=== PATIENT | female | born 1955 | race Hispanic/Latino ===

== ENCOUNTER → 2017-04-04 | Outpatient (CLI) | payer OTHER | END | disposition home or self-care (01) | LOC: OIH 09:11 | PROVIDERS: ATTEND Nurse Practitioner Adult Health | DX: Z13.6 Encounter for screening for cardiovascular disorders (principal) | CPT/HCPCS: 75571 ==

== ENCOUNTER → 2018-10-03 | Outpatient (CLI) | payer BC, OTHER | END | disposition home or self-care (01) | LOC: RAH 15:29 | PROVIDERS: ATTEND Physician Assistant Medical | DX: M50.21 Other cervical disc displacement, high cervical region (principal); M48.02 Spinal stenosis, cervical region | CPT/HCPCS: 72141 ==

== ENCOUNTER 2018-10-05 03:25 | Emergency (ER) | payer BC ==
[2018-10-05] MEDS ORDERED: KETOROLAC TROMETHAMINE 60 MG/2 ML VIAL ONE (04:54)
== END 2018-10-05 06:54 | disposition home or self-care (01) ==
LOC: EDH 03:25
DX: M54.6 Pain in thoracic spine (principal); M54.2 Cervicalgia; M62.838 Other muscle spasm
CPT/HCPCS: 96372; 99284; J1885

== ENCOUNTER → 2019-07-28 | Outpatient (CLI) | payer OTHER | END | disposition home or self-care (01) | LOC: RAH 09:44 | PROVIDERS: ATTEND Family Medicine | DX: Z13.6 Encounter for screening for cardiovascular disorders (principal) | CPT/HCPCS: 75571 ==

== ENCOUNTER 2021-02-03 22:19 | Emergency (ER) | payer MEDICARE, OTHER ==
[~2021-02-03] VITALS: Ht 149.9 cm; Wt 74.8 kg
[2021-02-03] MEDS ORDERED: HYDROCODONE/ACETAMINOPHEN 10/325 MG TAB PO ONE (23:00)
[2021-02-03] MEDS ORDERED: DIAZEPAM 5 MG TABLET PO ONE (23:00)
[2021-02-03] MEDS ORDERED: KETOROLAC 60 MG VIAL (30MG/ML) IM ONE (23:00)
[2021-02-03] MEDS ORDERED: 0.9%NACL 1000ML 1,000 ML IV ONE (23:30)
[2021-02-03] MEDS ORDERED: KETOROLAC 30MG VIAL (30MG/ML) IV ONE (23:30)
[2021-02-03 23:54] LABS: BASOPHILS % (AUTO) 0.3 % (0.0-5.0); EOSINOPHILS % (AUTO) 0.9 % (0.0-8.0); HEMATOCRIT 42.4 % (36-48); LYMPHOCYTES % (AUTO) 11.3 % (21.0-51.0); MEAN CORPUSCULAR HGB CONC 32.3 g/dL (32.0-36.0); NEUTROPHILS % (AUTO) 80.2 % (40.0-77.0); PLATELET COUNT (AUTO) 280 K/uL (130-400); RED BLOOD CELL COUNT(AUTO) 4.56 MIL/uL (4.00-5.50); RED CELL DISTRIBUTION WIDTH 12.5 % (11.0-15.5); WHITE BLOOD COUNT (AUTO) 10.7 K/uL (4.8-10.8)
[2021-02-04 00:11] LABS: CREATININE 0.8 mg/dL (0.5-1.5); POTASSIUM 4.3 mmol/L (3.5-5.1)
[2021-02-04 00:16] LABS: BILIRUBIN,TOTAL 0.2 mg/dL (0.2-1.0); CRP QUANTITATIVE 5.4 mg/L (0.00-9.0); TOTAL PROTEIN, SERUM 7.7 g/dL (6.0-8.3)
[2021-02-04 01:10] LABS: APPEARANCE,URINE Clear (CLEAR); BILIRUBIN,URINE Negative (NEGATIVE); COLOR,URINE Yellow (YELLOW); GLUCOSE, URINE (UA) Negative (NEGATIVE); KETONES,URINE Negative (NEGATIVE); LEUKOCYTE ESTERASE ,URINE Moderate (NEGATIVE); NITRATE,URINE Negative (NEGATIVE); OCCULT BLOOD,URINE Negative (NEGATIVE); PROTEIN,URINE Negative (NEGATIVE)
[2021-02-04 01:32] LABS: BACTERIA,URINE None Seen /HPF (None Seen); RBC,URINE 0-1 /HPF (0-1); SQUAMOUS EPITHELIAL CELL,UR Rare /HPF (0-2)
[2021-02-04 01:55] VITALS: BP 118/72
[2021-02-04] MEDS ORDERED: CEFTRIAXONE 1G VIAL IVP ONE (02:00)
[2021-02-04] MEDS ORDERED: ORPH-43 PO (02:14)
[2021-02-04] MEDS ORDERED: CEPH500B PO (02:14)
[2021-02-04] MEDS ORDERED: LIDOP TP (02:14)
[2021-02-04] MEDS ORDERED: MELO7.5T12 PO (02:14)
== END 2021-02-04 02:44 | disposition home or self-care (01) ==
LOC: EDH 22:19
DX: N39.0 Urinary tract infection, site not specified (principal); E86.9 Volume depletion, unspecified; M54.50 Low back pain, unspecified; Z20.822 Contact with and (suspected) exposure to COVID-19; E78.00 Pure hypercholesterolemia, unspecified; E66.9 Obesity, unspecified; Z79.1 Long term (current) use of non-steroidal anti-inflammatories (NSAID); Z90.49 Acquired absence of other specified parts of digestive tract; Z68.33 Body mass index [BMI] 33.0-33.9, adult
CPT/HCPCS: 36415; 71045; 72131; 80053; 81001; 83605; 85025; 86140; 87088; 87635; 87804 ×2; 96361; 96374; 96375; 99285; C9803; J0696; J1885; J7030

== ENCOUNTER 2024-12-07 14:02 | Emergency (ER) | payer MEDICARE ==
[~2024-12-07] VITALS: Ht 149.9 cm; Wt 74.8 kg
[~2024-12-07 14:02] MED LIST: CEPH500B PO; LIDOP TP; MELO7.5T12 PO; ORPH100T4 PO
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
[2024-12-07 15:22] LABS: APPEARANCE,URINE CLEAR (CLEAR); GLUCOSE, URINE (UA) NEGATIVE (NEGATIVE); LEUKOCYTE ESTERASE ,URINE NEGATIVE Leu/uL (NEGATIVE); NITRATE,URINE NEGATIVE (NEGATIVE); OCCULT BLOOD,URINE NEGATIVE (NEGATIVE)
[2024-12-07 15:27] LABS: NUCLEATED RED BLOOD CELLS 0.0 % (0.0-0.19); PLATELET COUNT (AUTO) 364.0 K/uL (130-400); RED BLOOD CELL COUNT(AUTO) 4.48 MIL/uL (4.00-5.50); RED CELL DISTRIBUTION WIDTH 12.3 % (11.0-15.5); WHITE BLOOD COUNT (AUTO) 11.4 K/uL (4.8-10.8)
[2024-12-07 15:31] LABS: ADD UA MICROSCOPIC NO
[2024-12-07 15:34] LABS: CREATININE 0.7 mg/dL (0.5-1.0); GLOMERULAR FILTR. RATE CALC 94.0 mL/min (>90); GLUCOSE,RANDOM 90.0 mg/dL (70-105); SODIUM SERUM 137.0 mmol/L (136-145); UREA NITROGEN, BLOOD 15.0 mg/dL (7-18)
--- NOTE | 2024-12-07 16:03 | NUR ---
BLADDER SCAN REFLECTS NO RETAINED URINE AT THIS TIME PT ADVISED EMPTIEDD BLADDER 10 MIN AGO
[2024-12-07 16:13] VITALS: BP 146/84; PULSE 84; RESP 16; TEMP 98.3; O2SAT 98
[2024-12-07] MEDS ORDERED: DICL20GE TP (16:36)
[2024-12-07] MEDS ORDERED: MELO-108 PO (16:36)
[2024-12-07] MEDS ORDERED: LID5O TP (16:36)
[2024-12-07] MEDS ORDERED: ORPH100T4 PO (16:36)
[2024-12-07] MEDS ORDERED: ACET-66 PO (16:36)
== END 2024-12-07 17:22 | disposition home or self-care (01) ==
LOC: EDH 14:02
DX: M54.50 Low back pain, unspecified (principal); E78.00 Pure hypercholesterolemia, unspecified; Z79.1 Long term (current) use of non-steroidal anti-inflammatories (NSAID); Z90.49 Acquired absence of other specified parts of digestive tract
CPT/HCPCS: 99284; 96374; 51798; 80048; 85027; 81003; 36415; J1885